=== PATIENT | male | born 1935 | race Asian ===

== ENCOUNTER 2023-06-14 00:01 | Emergency (ER) | payer MEDICARE ==
[~2023-06-14] VITALS: Ht 160 cm; Wt 54.5 kg
[2023-06-14 00:03] VITALS: BP 161/77; PULSE 57; RESP 18; TEMP 97.5
[2023-06-14] MEDS ORDERED: FINA-27 PO (00:13)
[2023-06-14] MEDS ORDERED: FLUT1BLS3 IH (00:13)
[2023-06-14] MEDS ORDERED: ESCI-8 PO (00:13)
[2023-06-14] MEDS ORDERED: MONT-35 PO (00:13)
[2023-06-14] MEDS ORDERED: TAMS0.4C94 PO (00:13)
[2023-06-14] MEDS ORDERED: ATOR40TA28 PO (00:13)
[2023-06-14] MEDS ORDERED: CETI-450 PO (00:13)
[2023-06-14] MEDS ORDERED: ASPI-1444 PO (00:13)
[2023-06-14 00:53] LABS: BASOPHILS % (AUTO) 0.8 % (0.0-2.0); EOSINOPHILS % (AUTO) 4.6 % (1.0-6.0); HEMATOCRIT 41.3 % (41-53); HEMOGLOBIN 13.8 g/dL (13.5-17.5); LYMPHOCYTES # (AUTO) 2.1 K/uL (1.0-4.8); LYMPHOCYTES % (AUTO) 35.6 % (22.0-44.0); MEAN CORPUSCULAR HEMOGLOBIN 30.5 pg (26.0-34.0); MEAN CORPUSCULAR HGB CONC 33.4 G/dL (31.0-37.0); MEAN CORPUSCULAR VOLUME 92 fL (80-100); MONOCYTES # (AUTO) 0.5 K/uL (0.1-1.0); MONOCYTES % (AUTO) 9.3 % (2.0-9.0); NEUTROPHILS # (AUTO) 2.9 K/uL (1.8-7.7); NEUTROPHILS % (AUTO) 49.7 % (40.0-70.0); PLATELET COUNT (AUTO) 250 K/uL (150-450); RED BLOOD CELL COUNT(AUTO) 4.51 MIL/uL (4.50-5.90); RED CELL DISTRIBUTION WIDTH 14.5 % (11.5-14.5); WHITE BLOOD COUNT (AUTO) 5.9 K/uL (4.5-11.0)
[2023-06-14 01:04] LABS: ANION GAP 5 mmol/L (8-16); CALCIUM, TOTAL 9.5 mg/dL (8.8-10.5); CARBON DIOXIDE 29 mmol/L (22-29); CHLORIDE 105 mmol/L (98-107); CREATININE 0.77 mg/dL (0.60-1.30); GLOMERULAR FILTR. RATE CALC > 60 mL/min (>60); GLUCOSE,RANDOM 95 mg/dL (70-110); POTASSIUM 4.1 mmol/L (3.5-5.1); SODIUM SERUM 139 mmol/L (136-145); UREA NITROGEN, BLOOD 17 mg/dL (7-18)
[2023-06-14 01:17] LABS: ALANINE AMINOTRANSFERASE 20 U/L (12-78); ALBUMIN 3.7 g/dL (3.4-5.0); ALKALINE PHOSPHATASE 64 U/L (46-116); ASPARTATE AMINOTRANSFERASE 14 U/L (15-37); BILIRUBIN,TOTAL 0.7 mg/dL (0.1-1.0); CREATINE KINASE, TOTAL ONLY 58 U/L (39-308); TOTAL PROTEIN, SERUM 6.7 g/dL (6.4-8.2)
[2023-06-14 01:19] LABS: B-TYPE NATRIURETIC PEPTIDE 7 pg/mL (0-100); TROPONIN I-HIGH SENSITIVITY 8 ng/L (<76)
== END 2023-06-14 01:42 | disposition home or self-care (01) ==
LOC: EMS 00:03
DX: I10 Essential (primary) hypertension (principal); J44.9 Chronic obstructive pulmonary disease, unspecified; E78.00 Pure hypercholesterolemia, unspecified; Z87.891 Personal history of nicotine dependence; Z98.890 Other specified postprocedural states
CPT/HCPCS: 80053; 82550; 83880; 84484; 85025; 93005; 99284